=== PATIENT | female | born 1995 | race Caucasian/White ===

== ENCOUNTER 2019-06-29 15:27 | Emergency (ER) | payer SELFPAY ==
[~2019-06-29] VITALS: Ht 167.6 cm; Wt 141.5 kg
[2019-06-29 16:12] VITALS: Ht 167.6 cm; Wt 141.5 kg
[2019-06-29 19:10] LABS: BASOPHIL % 0.1 % (0-2); PLATELET COUNT 340 x10^3mcL (130-400)
[2019-06-29 19:14] LABS: RED CELL DISTRIBUTION WIDTH 16.7 % (11.5-14.5)
[2019-06-29 19:15] LABS: CALCIUM 8.9 mg/dL (8.5-10.1); CARBON DIOXIDE 28.2 mmol/L (21-32); CHLORIDE SERUM 107 mmol/L (98-107); CREATININE SERUM 0.8 mg/dL (0.6-1.0); GFR1 > 60 mL/min; GLUCOSE SERUM 112 mg/dL (74-106); POTASSIUM SERUM 3.9 mmol/L (3.5-5.1); SODIUM SERUM 144 mmol/L (136-145)
[2019-06-29 19:20] LABS: ALBUMIN 3.6 g/dL (3.4-5.0); ALKALINE PHOSPHATASE 110 U/L (46-116); ALT/SGPT 30 U/L (14-59); AST/SGOT 19 U/L (15-37); BILIRUBIN TOTAL 0.4 mg/dL (0.20-1.00); TOTAL PROTEIN, SERUM 8.1 g/dL (6.4-8.2)
[2019-06-29 19:56] VITALS: BP 135/80
== END 2019-06-29 19:56 | disposition home or self-care (01) ==
LOC: ED 15:27
PROVIDERS: Emergency Medicine
DX: R20.2 Paresthesia of skin (principal); J40 Bronchitis, not specified as acute or chronic
CPT/HCPCS: 36415